=== PATIENT | female | born 1985 | race Caucasian/White ===

== ENCOUNTER → 2016-12-09 | Day surgery (SDC) | payer BC ==
[~2016-12-09] MED LIST: AMOXICILLIN500 M1 PO
--- NOTE | ~2016-12-09 | OR ---
Unit #: [id number]: [id number] Patient: CHARISSA PATEL [id number] [place], [place] [address] [id number] MR#: [id number] NAME: CHARISSA PATEL ROOM: Date of Procedure: 12/09/2016 Admission Date: 12/09/2016 Surgeon: Hunter Marquez M.D. : 1985 Attending Physician: Hunter Marquez M.D. Primary Care Physician: Primary Care Physician No OPERATIVE REPORT PREOPERATIVE DIAGNOSIS Chronic recurrent right axillary hidradenitis. POSTOPERATIVE DIAGNOSIS Chronic recurrent right axillary hidradenitis. PROCEDURE PERFORMED Excision and resection of right axillary hidradenitis measuring 8 x 4 cm. ANESTHESIA General endotracheal anesthesia. ESTIMATED BLOOD LOSS 40 mL. INDICATIONS FOR PROCEDURE A 31-year-old female with chronic recurrent episodes of right axillary hidradenitis. She has treated this locally and systemically without resolution and now has chronic draining sinus tracts. DESCRIPTION OF PROCEDURE The patient was admitted to [facility], positively identified, and transported to the operating room, and after induction of general endotracheal anesthesia, she received vancomycin per SCIP protocol. A roll was placed underneath the right shoulder and back and the arm was abducted on an operating armboard with appropriate padding and support. The area of the right axilla was prepped and draped in usual sterile fashion. The area where the sinus tracts, chronic scarring, and palpable disease had a wedge excision made in the skin. We dissected out the skin flaps medially and laterally to remove all the affected tissue and then excised the tissue at the level of the muscular fascia. I irrigated and obtained hemostasis. 30 mL of 0.5% Marcaine with epinephrine was infiltrated into fascia and soft tissue. The soft tissue was closed in layers with 2-0 Vicryl interrupted suture. The skin was closed with 3-0 nylon vertical mattress sutures. Telfa and Tegaderm were placed as dressing. Sponges and needle counts were correct x3. The patient tolerated the procedure well and transported to recovery in stable condition. Findings and postoperative instructions and expectations were discussed with her boyfriend. Dictated by... Unit #: [id number] #: [id number] Patient: PATEL,CHARISSANilo Pina/nohemi TD: 12/09/2016 16:09 JOB #: [id number] OPERATIVE REPORT Page 1 of 1 X Hunter Marquez MD PROCEDURE OPERATIVE NOTE
[2016-12-09 12:45] LABS: HEMATOCRIT 40.2 % (35.0-45.0); HEMOGLOBIN 13.2 gm/dL (12.0-16.0); MEAN CELL VOLUME 89.1 FL (83-96); MEAN CORPUSCULAR HEMOGLOBIN 29.3 PG (28-34); MEAN CORPUSCULAR HGB CONC 32.9 g/dL (30-36); MEAN PLATELET VOLUME 8.7 FL (6.5-11.5); RED BLOOD COUNT 4.52 X10e (3.90-5.30); RED CELL DISTRIBUTION WIDTH 12.4 % (11.0-15.5)
[2016-12-09 13:08] LABS: BUN/CREATININE RATIO 18.88; CALCIUM SERUM 9.3 mg/dL (8.4-10.2); CREATININE SERUM 0.9 mg/dL (0.6-1.4); GLOM FILT RATE Estimated 84.7 mL/min (>60); POTASSIUM 3.6 mmol/L (3.5-5.1)
== END | disposition home or self-care (01) ==
LOC: CSUR 12:15
PROVIDERS: Specialist
DX: L73.2 Hidradenitis suppurativa (principal); M41.9 Scoliosis, unspecified; Z90.49 Acquired absence of other specified parts of digestive tract; J45.909 Unspecified asthma, uncomplicated; Z79.2 Long term (current) use of antibiotics; Z98.890 Other specified postprocedural states; Z83.3 Family history of diabetes mellitus; Z81.8 Family history of other mental and behavioral disorders; Z82.61 Family history of arthritis; Z82.49 Family history of ischemic heart disease and other diseases of the circulatory system; Z82.3 Family history of stroke
CPT/HCPCS: 80048; 85027; 88304; J1170; J2250; J2405; J3010; J3370

== ENCOUNTER → 2016-12-15 | Outpatient (CLI) | payer BC ==
[2016-12-15 15:08] LABS: HEMATOCRIT 50.4 % (35.0-45.0); HEMOGLOBIN 16.5 gm/dL (12.0-16.0); MEAN CELL VOLUME 88.6 FL (83-96); MEAN CORPUSCULAR HGB CONC 32.7 g/dL (30-36); MEAN PLATELET VOLUME 8.4 FL (6.5-11.5); RED BLOOD COUNT 5.69 X10e (3.90-5.30); RED CELL DISTRIBUTION WIDTH 12.6 % (11.0-15.5); WHITE BLOOD COUNT 8.6 X10e3 (4.0-10.5)
[2016-12-15 15:09] LABS: URINE APPEARANCE CLOUDY; URINE BILIRUBIN NEG (NEG); URINE BLOOD NEG (NEG); URINE COLOR YELLOW; URINE GLUCOSE NEG (NEG); URINE KETONE NEG (NEG); URINE LEUKOCYTE ESTERASE 2+ (NEG); URINE NITRATE NEG (NEG); URINE PROTEIN NEG (NEG); URINE SPECIFIC GRAVITY 1.027 (1.003-1.035); URINE UROBILINOGEN 0.2 MG/DL (NEG)
[2016-12-15 15:12] LABS: URINE BACTERIA AUWI 3+ (NEGATIVE); URINE SQUAMOUS EPITHELIAL CELL FEW /[HPF]; UWBCS1 AUWI 25-50 (0-5)
[2016-12-15 15:23] LABS: URINE SOURCE CLEAN CATCH
[2016-12-15 15:30] LABS: ALBUMIN SERUM 4.6 g/dL (3.5-5.0); BILIRUBIN,TOTAL 0.6 mg/dL (0.2-2.0); BUN/CREATININE RATIO 16.66; CALCIUM SERUM 10.2 mg/dL (8.4-10.2); CREATININE SERUM 0.9 mg/dL (0.6-1.4); GLOM FILT RATE Estimated 84.7 mL/min (>60); POTASSIUM 4.3 mmol/L (3.5-5.1); PROTEIN TOTAL SERUM 8.4 g/dL (6.0-8.3)
== END | disposition home or self-care (01) ==
LOC: CLAB 14:38
PROVIDERS: Specialist
DX: R42 Dizziness and giddiness (principal); Z98.890 Other specified postprocedural states
CPT/HCPCS: 36415; 80053; 81003; 82150; 83690; 85027

== ENCOUNTER 2017-01-30 22:43 | Emergency (ER) | payer BC ==
[~2017-01-30] VITALS: Ht 182.9 cm; Wt 96.6 kg
== END 2017-01-31 03:23 | disposition home or self-care (01) ==
LOC: CED 22:43
DX: R51 Headache (principal); Z90.49 Acquired absence of other specified parts of digestive tract; Z88.2 Allergy status to sulfonamides; Z79.899 Other long term (current) drug therapy
CPT/HCPCS: 96361; 96374; 96375; 99284; J1100; J1200; J2550